=== PATIENT | male | born 1995 ===

== ENCOUNTER 2025-03-05 17:56 | Emergency (ER) | payer BC ==
[~2025-03-05] VITALS: Ht 177.8 cm; Wt 81.7 kg
== END 2025-03-05 20:47 | disposition home or self-care (01) ==
LOC: ER 17:56
DX: R06.02 Shortness of breath (principal); Z87.09 Personal history of other diseases of the respiratory system; Z59.89 Other problems related to housing and economic circumstances
CPT/HCPCS: 71046; 99282-25